=== PATIENT | female | born 1930 | race Caucasian/White ===

== ENCOUNTER 2018-01-16 18:26 | Emergency (ER) | payer MEDICARE ==
[~2018-01-16] VITALS: Ht 162.6 cm; Wt 59.9 kg
[~2018-01-16 18:26] MED LIST: ALPR.25T PO; AMLO5TAB2 PO; ASPI-875 PO; ATOR40TA PO; BP MED; GABA600T2 PO; LISI2.5T85 PO; LVT.025T PO; SERT25TA PO; SIMV20TA3 PO; TRAM50TA2 PO
--- OUTSIDE RECORDS SUMMARY | 2018-01-16 18:41 | XMS REPORT | Continuity of Care Document ---
Author Author [facility] Address Unknown Phone Unavailable Allergies There is no data. Medications There is no data. 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 03/04/2012 BROOKS BLUM DO K 250.00 DIABETES MELLITUS TYPE 2 - UNCOMPLICATED, CONTROLLED 03/04/2012 BROOKS BLUM DO K 311 DEPRESSION 03/04/2012 PROMISE BLUM DOA K 401.1 ESSENTIAL HYPERTENSION BENIGN 03/04/2012 BROOKS BLUM DO K 427.9 SINUS ARRHYTHMIA 03/04/2012 ANNA LUCIO MD 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 03/04/2012 ANNA LUCIO MD 250.00 DIABETES MELLITUS TYPE 2 - UNCOMPLICATED, CONTROLLED 03/04/2012 ANNA LUCIO MD 311 DEPRESSION 03/04/2012 ANNA LUCIO MD 401.1 ESSENTIAL HYPERTENSION BENIGN 03/04/2012 ANNA LUCIO MD 427.9 SINUS ARRHYTHMIA 03/04/2012 MADCheryl PHOTOGRAPHIC LITHOGRAPHERALCIDES WalterSILVANA L 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 03/04/2012 SOPHIE LAMAS SILVANA L 250.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 MELLITUS TYPE 2 - UNCOMPLICATED, CONTROLLED 03/04/2012 MADL PHOTOGRAPHIC LITHOGRAPHER, SILVANA L 311 DEPRESSION 03/04/2012 SOPHIE PHOTOGRAPHIC LITHOGRAPHER, SILVANA L 401.1 ESSENTIAL HYPERTENSION BENIGN 03/04/2012 MADL PHOTOGRAPHIC LITHOGRAPHER, SILVANA L 427.9 SINUS ARRHYTHMIA 03/04/2012 MADL PHOTOGRAPHIC LITHOGRAPHER, SILVANA L 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 03/04/2012 MADL PHOTOGRAPHIC LITHOGRAPHER, SILVANA L 250.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 MELLITUS TYPE 2 - UNCOMPLICATED, CONTROLLED 03/04/2012 MADL PHOTOGRAPHIC LITHOGRAPHER, SILVANA L 311 DEPRESSION 03/04/2012 MADL PHOTOGRAPHIC LITHOGRAPHER, SILVANA L 401.1 ESSENTIAL HYPERTENSION BENIGN 03/04/2012 MADL PHOTOGRAPHIC LITHOGRAPHER, SILVANA L 427.9 SINUS ARRHYTHMIA 03/04/2012 BLUM DO, BROOKS K 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 03/04/2012 BLUM DO, BROOKS K 250.00 DIABETES MELLITUS TYPE 2 - UNCOMPLICATED, CONTROLLED 03/04/2012 BLUM DO, BROOKS K 311 DEPRESSION 03/04/2012 BLUM DO, BROOKS K 401.1 ESSENTIAL HYPERTENSION BENIGN 03/04/2012 BLUM DO, BROOKS K 427.9 SINUS ARRHYTHMIA 03/04/2012 ELLI ENCISO MD 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 03/04/2012 ELLI ENCISO MD 250.00 DIABETES MELLITUS TYPE 2 - UNCOMPLICATED, CONTROLLED 03/04/2012 ELLI ENCISO MD 311 DEPRESSION 03/04/2012 ELLI ENCISO MD 401.1 ESSENTIAL HYPERTENSION BENIGN 03/04/2012 ELLI ENCISO MD 427.9 SINUS ARRHYTHMIA 03/04/2012 BLUM DO, BROOKS K 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 03/04/2012 BLUM DO, BROOKS K 250.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 MELLITUS TYPE 2 - UNCOMPLICATED, CONTROLLED 03/04/2012 BLUM DO, BROOKS K 311 DEPRESSION 03/04/2012 BLUM DO, BROOKS K 401.1 ESSENTIAL HYPERTENSION BENIGN 03/04/2012 BLUM DO, BROOKS K 427.9 SINUS ARRHYTHMIA 03/04/2012 ELLI ENCISO MD 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 03/04/2012 ELLI ENCISO MD 250.00 DIABETES MELLITUS TYPE 2 - UNCOMPLICATED, CONTROLLED 03/04/2012 ELLI ENCISO MD 311 DEPRESSION 03/04/2012 ELLI ENCISO MD 401.1 ESSENTIAL HYPERTENSION BENIGN 03/04/2012 ELLI ENCISO MD 427.9 SINUS ARRHYTHMIA 11/19/2012 ANNA LUCIO MD 593.9 RENAL INSUFFICIENCY 11/19/2012 ANNA LUCIO MD 724.2 LUMBAGO/ LOW BACK PAIN 11/19/2012 MADL PHOTOGRAPHIC LITHOGRAPHER, SILVANA L 593.9 RENAL INSUFFICIENCY 11/19/2012 MADL PHOTOGRAPHIC LITHOGRAPHER, SILVANA L 724.2 LUMBAGO/ LOW BACK PAIN 11/19/2012 MADL PHOTOGRAPHIC LITHOGRAPHER, SILVANA L 593.9 RENAL INSUFFICIENCY 11/19/2012 MADL PHOTOGRAPHIC LITHOGRAPHER, SILVANA L 724.2 LUMBAGO/ LOW BACK PAIN 11/19/2012 BROOKS BLUM DO K 593.9 RENAL INSUFFICIENCY 11/19/2012 BROOKS BULM DO K 724.2 LUMBAGO/ LOW BACK PAIN 11/19/2012 ELLI ENCISO MD 593.9 RENAL INSUFFICIENCY 11/19/2012 ELLI ENCISO MD 724.2 LUMBAGO/ LOW BACK PAIN 11/19/2012 BROOKS LBUM DO 593.9 RENAL INSUFFICIENCY 11/19/2012 BROOKS BLUM DO 724.2 LUMBAGO/ LOW BACK PAIN 11/19/2012 ELLI ENCISO MD 593.9 RENAL INSUFFICIENCY 11/19/2012 ELLI ENCISO MD 724.2 LUMBAGO/ LOW BACK PAIN 01/17/2014 BROOKS BLUM DO V74.1 TB SCREENING 01/17/2014 ELLI ENCISO MD V74.1 TB SCREENING 01/17/2014 BROOKS BLUM DO V74.1 TB SCREENING 01/17/2014 ELLI ENCISO MD V74.1 TB SCREENING 04/13/2014 BROOKS BLUM DO 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 Encounters ACCT No. Visit Date/Time Discharge Status Pt. Type Provider Facility Loc./Unit Complaint [id number] 07/27/2014 16:33:00 07/27/2014 23:59:59 CLS Outpatient ELLI ENCISO MD [id number] 04/13/2014 15:44:00 04/13/2014 23:59:59 CLS Outpatient BROOKS BLUM DO [id number] 02/03/2014 08:27:00 02/03/2014 23:59:59 CLS Outpatient ELLI ENCISO MD [id number] 01/17/2014 09:58:00 01/17/2014 23:59:59 CLS Outpatient BROOKS BLUM DO [id number] 11/17/2013 15:11:00 11/17/2013 23:59:59 CLS Outpatient SILVANA BARRIOS APRN [id number] 11/17/2013 15:11:00 11/17/2013 23:59:59 CLS Outpatient SILVANA BARRIOS APRN [id number] 11/19/2012 14:09:00 11/19/2012 23:59:59 CLS Outpatient ANNA LUCIO MD [id number] 04/15/2012 10:43:00 04/15/2012 23:59:59 CLS Outpatient BROOKS BLUM DO [id number] 03/04/2012 16:17:00 03/04/2012 23:59:59 CLS Outpatient ELLI ENCISO MD [id number] 01/27/2014 16:30:00 01/27/2014 23:59:59 CLS Outpatient
[2018-01-16] MEDS ORDERED: CHOL1CRY2 MC (19:15)
[2018-01-16] MEDS ORDERED: PRENATAL PO (19:15)
[2018-01-16] MEDS ORDERED: MELA10TA PO (19:15)
[2018-01-16] MEDS ORDERED: DONE5TAB8 PO (19:15)
[2018-01-16] MEDS ORDERED: MELO-170 PO (19:15)
[2018-01-16] MEDS ORDERED: ACET-93 PO (19:15)
[2018-01-16] MEDS ORDERED: RT-ALBUTEROL SULF 2.5 MG/3 ML PRE-MIX VIAL INH STA (19:21)
[2018-01-16] MEDS ORDERED: RT-ALBUTEROL/IPRATROPIUM 3 ML (DUONEB) VIAL ONE (19:32)
[2018-01-16] MEDS ORDERED: RT-ALBUTEROL/IPRATROPIUM 3 ML (DUONEB) VIAL INH ONE (19:45)
--- NOTE | 2018-01-16 19:55 | ED Cough/URI ---
General Chief Complaint: Respiratory Problems Stated Complaint: CONGESTED Nursing Triage Note: PT AMBULATES TO ROOM 1O W ASSITANCE, PT IS SOA, O2 SAT 88% ON ROOM AIR. PT HAS AUDIBLE WHEEZING NOTED. PT ALSO VOMITED ONCE Source: patient, family Exam Limitations: physical impairment (mild dementia and hard of hearing) History of Present Illness Date Seen by Provider: Jan 16, 2018 Time Seen by Provider: 19:25 Initial Comments Here with report of wheezing and vomited once. Does have history of wheezing over the last several years. Denies any significant complaints. Was 88 percent on room air on arrival and was placed on 2 L of O2. This did increase her saturation to 100 percent. Patient denies any specific complaints. She came over from the assisted living facility per their request due to the wheezing. She does have breathing treatments there. No reported fevers. Timing/Duration: this evening Severity/Quality: mild, dry cough Prior Episodes/Possible Cause: occasional episodes Modifying Factors: Worse With Activity; Improves With Albuterol Nebulizer, Improves With Coughing, Improves With Oxygen, Improves With Rest Associated Symptoms: cough, shortness of breath, wheezing Allergies and Home Medications Allergies Coded Allergies: NKANo Known Allergies (Verified Allergy, Unknown, 01/29/06) Home Medications Acetaminophen 500 Mg Tablet, 500 MG PO PRN PRN for PAIN-MILD OR TEMPATURE, ( Reported) Amlodipine Besylate 5 Mg Tablet, 5 MG PO DAILY, (Reported) Cholecalciferol (Vitamin D3) 1 Gm Crystals, 1 GM MC DAILY, (Reported) Donepezil HCl 5 Mg Tablet, 5 MG PO HS, (Reported) Lisinopril 2.5 Mg Tablet, 10 MG PO DAILY, (Reported) Melatonin 10 Mg Tab.mphase, 10 MG PO HS, (Reported) Meloxicam 7.5 Mg Tablet, 7.5 MG PO DAILY, (Reported) Sertraline Hcl 25 Mg Tablet, 25 MG PO DAILY, (Reported) [] , 1 TAB PO DAILY, (Reported) Patient Home Medication List Home Medication List Reviewed: Yes Review of Systems Review of Systems Constitutional: see HPI; No chills, No fever EENTM: no symptoms reported Respiratory: see HPI Cardiovascular: no symptoms reported Gastrointestinal: No diarrhea, No nausea; vomiting Genitourinary: no symptoms reported Musculoskeletal: no symptoms reported Skin: no symptoms reported Psychiatric/Neurological: See HPI Past Iszwayy-Kmnnhw-Irmwqk Hx Past Med/Social Hx: Reviewed Nursing Past Med/Soc Hx Patient Social History Alcohol Use: Denies Use Recreational Drug Use: No Smoking Status: Former Smoker Recent Foreign Travel: No Contact w/Someone Who Travel: No Recent Infectious Disease Expo: No Recent Hopitalizations: No Physical Abuse: No Sexual Abuse: No Immunizations Up To Date Date of Pneumonia Vaccine: Mar 26, 2009 Date of Influenza Vaccine: Feb 09, 2012 Past Medical History Surgeries: Yes (HERNIA REPAIR) Respiratory: No Neurological: No Reproductive Disorders: No Gastrointestinal: No Psychosocial: No Blood Disorders: No Family Medical History Reviewed Nursing Family Hx Physical Exam Vital Signs - First Documented 01/16/18 01/16/18 18:40 19:25 Temp 99.0 Pulse 68 Resp 24 B/P (MAP) 194/92 (126) Pulse Ox 88 O2 Delivery Room Air O2 Flow Rate 2.00 Capillary Refill : Less Than 3 Seconds Height: 5'4.00" Weight: 132lbs. oz. 59.232560db; BMI Method:Stated General Appearance: WD/WN, no apparent distress HEENT: PERRL/EOMI, pharynx normal Neck: full range of motion, supple Respiratory: no accessory muscle use, wheezing, expiration Cardiovascular: regular rate, rhythm, no murmur Gastrointestinal: non tender, soft Extremities: non-tender, normal inspection Neurologic/Psychiatric: alert, normal mood/affect Skin: normal color, warm/dry Progress/Results/Core Measures Suspected Sepsis Recent Fever Within 48 Hours: No Infection Criteria Present: None New/Unexplained Altered Menta: No Sepsis Screen: No Definite Risk SIRS Temperature:99.0 Pulse: 68 Respiratory Rate: 24 Blood Pressure 194 /92 Mean: 126 Results/Orders My Orders Orders - ROBIN GONZALEZ MD Chest Pa/Lat (2 View) (01/16/18 19:21) Albuterol Pre-Mix Nebs (Rt) (Proventil (01/16/18 19:21) Svn Small Volume Nebulizer (01/16/18 19:21) Albuterol/Ipra Inhalation Soln (Duoneb I (01/16/18 19:45) Svn Small Volume Nebulizer (01/16/18 19:34) Albuterol/Ipra Inhalation Soln (Duoneb I (9/8/18 19:32) Cefdinir Capsule (Omnicef Capsule) (01/16/18 21:30) Medications Given in ED Current Medications Medications Dose Ordered Sig/Jeaneth Route Start Time Stop Time Status Last Admin Dose Admin Albuterol/ Ipratropium 3 ml ONCE ONCE INH 01/16/18 19:45 01/16/18 19:46 DC 01/16/18 19:35 3 ML Vital Signs/I&O 01/16/18 01/16/18 01/16/18 18:40 19:25 19:35 Temp 99.0 Pulse 68 Resp 24 B/P (MAP) 194/92 (126) Pulse Ox 88 99 100 O2 Delivery Room Air Nasal Cannula Nasal Cannula O2 Flow Rate 2.00 2.00 Capillary Refill : Less Than 3 Seconds Blood Pressure Mean: 126 Progress Note : Progress Note Seen and evaluated. Duo neb, albuterol neb and chest x-ray ordered. Monitor patient. 2119: I did review the chest x-ray results with the patient's family. There is question of hiatal hernia versus mass. This may just be hiatal hernia but we did discuss the possibility of CT scan of the chest to verify this more. The patient's son would like to talk to his brother about this before proceeding. I think that is reasonable. I will send a copy of the chart to Dr. Gregory's office so they have an idea what is going on as well. They will follow-up with him this week for recheck and further evaluation and to discuss further imaging as needed. Patient did improve after 2 breathing treatments. There is some streaky findings on the lungs on chest x-ray. She is not febrile but given her current status I will go ahead and initiate outpatient treatment with Omnicef. First dose now. The son was in agreement with this. Discharged home with return precautions. Verbalize understanding instructions and agreement with plan. Diagnostic Imaging Diagonstic Imaging: Xray Plain Films/CT/US/NM/MRI: chest Comments VIA [facility]. [place], [place] NAME: GUERO CHAVARRIA [facility] REC#: [id number] PT STATUS: REG ER : 1930 PHYSICIAN: ROBIN GONZALEZ MD ADMIT DATE: 01/16/18/ER Draft Date of Exam:01/16/18 CHEST PA/LAT (2 VIEW) EXAMINATION: Chest (PA and lateral). CLINICAL INDICATION: 87-year-old female, shortness of breath. Wheezing. COMPARISON: None. FINDINGS: Heart size is unremarkable. There is an air-filled mass projecting over the central aspect of the lower chest, measuring 7.9 x 6.0 cm in size. This may reflect a moderate to large hiatal hernia although it is not definitively assessed on radiographs. There is no identified pneumothorax. There is no pleural effusion. There are nonspecific streaky opacities in the left lung base. There is mild reticular nodularity in the right mid and upper lung zones of uncertain exact chronicity. There is a sclerotic lesion involving the right humeral neck, measuring 9 mm in size which is nonspecific. IMPRESSION: 1. Masslike abnormality overlying the lower aspect of the mediastinum, centrally, which may reflect a moderate to large hiatal hernia but is not definitively diagnosed radiographically. 2. Nonspecific streaky opacities in the left lung base which may reflect infiltrate and/or atelectasis. 3. Mild reticular nodularity in the right mid and upper lung zones of uncertain exact chronicity. 4. Nonspecific sclerotic lesion at the level of the right humeral neck, measuring 9 mm in size. Dictated on workstation # [id number] Dict: 01/16/182046 Trans: 01/16/182058 [facility] [id number] Interpreted by: JASON ORTIZ MD Electronically signed by: Departure Impression Primary Impression: Left lower lobe pneumonia Qualified Codes: J18.1 - Lobar pneumonia, unspecified organism Disposition: 01 HOME, SELF-CARE Condition: Improved Departure-Patient Inst. Decision time for Depature: 21:28 Referrals: SONALI HAM DO (PCP/Family) Primary Care Physician Patient Instructions: Pneumonia, Adult (DC) Add. Discharge Instructions: All discharge instructions reviewed with patient and/or family. Voiced understanding. Take medications as directed. You should follow-up with Dr. Enciso this week for recheck and further evaluation and to discuss further imaging of the chest related to question of central mass. Continue breathing treatments every 6 hours as needed for shortness of breath. Return for worse pain, fever, vomiting , weakness, breathing problems or other concerns as needed. Otherwise continue home medications as previously prescribed. Scripts Cefdinir (Cefdinir) 300 Mg Capsule 300 MG PO BID, #14 CAP 0 Refills Prov: ROBIN GONZALEZ MD 01/16/18 Copy Copies To 1: ELLI ENCISO MD, TIMOTHY D MD Jan 16, 2018 19:55
--- NOTE | 2018-01-16 20:59 | Diagnostic Imaging Report ---
EXAMINATION: Chest (PA and lateral). CLINICAL INDICATION: 87-year-old female, shortness of breath. Wheezing. COMPARISON: None. FINDINGS: Heart size is unremarkable. There is an air-filled mass projecting over the central aspect of the lower chest, measuring 7.9 x 6.0 cm in size. This may reflect a moderate to large hiatal hernia although it is not definitively assessed on radiographs. There is no identified pneumothorax. There is no pleural effusion. There are nonspecific streaky opacities in the left lung base. There is mild reticular nodularity in the right mid and upper lung zones of uncertain exact chronicity. There is a sclerotic lesion involving the right humeral neck, measuring 9 mm in size which is nonspecific. IMPRESSION: 1. Masslike abnormality overlying the lower aspect of the mediastinum, centrally, which may reflect a moderate to large hiatal hernia but is not definitively diagnosed radiographically. 2. Nonspecific streaky opacities in the left lung base which may reflect infiltrate and/or atelectasis. 3. Mild reticular nodularity in the right mid and upper lung zones of uncertain exact chronicity. 4. Nonspecific sclerotic lesion at the level of the right humeral neck, measuring 9 mm in size. Dictated by: Dictated on workstation # [id number]
[2018-01-16] MEDS ORDERED: CEFDINIR 300 MG (OMNICEF) CAP PO ONE (21:30)
[2018-01-16] MEDS ORDERED: CEFD300C3 PO (21:31)
[2018-01-16 22:05] VITALS: BP 166/82
== END 2018-01-16 21:51 | disposition home or self-care (01) ==
LOC: EDUNIT# 18:26 → ER 18:30
DX: J18.1 Lobar pneumonia, unspecified organism (principal); Z87.891 Personal history of nicotine dependence; Z98.890 Other specified postprocedural states
CPT/HCPCS: 71046; 94640